=== PATIENT | female | born 1990 | race Caucasian/White ===

== ENCOUNTER 2021-02-24 12:59 | Day surgery (SDC) | payer MEDICAID, OTHER ==
[~2021-02-24] VITALS: Ht 162.6 cm; Wt 92.5 kg
[2021-02-24 14:10] LABS: HCG,QUAL RESULT NEGATIVE (NEGATIVE)
[2021-02-24] MEDS ORDERED: CEFAZOLIN 2 GM IVPB PREMIX 50 ML IV ONE (14:27)
[2021-02-24] MEDS ORDERED: ALBMDI INH (15:20)
[2021-02-24] MEDS ORDERED: ACET-2634 PO (15:21)
[2021-02-24] MEDS ORDERED: CEFAZOLIN SOD 2 GM in D5W 50 ML IV ONE (15:30)
[2021-02-24] MEDS ORDERED: MIDAZOLAM HCL 5 MG/5 ML VIAL IVP ONE (17:25)
[2021-02-24] MEDS ORDERED: PHENYLEPHRINE HCL 10 MG/ML VIAL (NEOSYNEPHRINE) IV ONE (17:25)
[2021-02-24] MEDS ORDERED: NS IRRIG SOLN 1000 ML IR ONE (17:25)
[2021-02-24] MEDS ORDERED: ONDANSETRON HCL 4 MG/2 ML VIAL IVP ONE (17:25)
[2021-02-24] MEDS ORDERED: fentaNYL CITRATE 250 MCG/5 ML AMP IV ONE (17:25)
[2021-02-24] MEDS ORDERED: SEVOFLURANE 15 MIN GAS INH ONE (17:25)
[2021-02-24] MEDS ORDERED: LR 1,000 ML IV.SOLN IV ONE (17:25)
[2021-02-24] MEDS ORDERED: GLYCOPYRROLATE 0.2 MG/ML VIAL IJ ONE (17:25)
[2021-02-24] MEDS ORDERED: ROCURONIUM BROMIDE 10 MG/ML (ZEMURON) IV ONE (17:25)
[2021-02-24] MEDS ORDERED: PROPOFOL 200MG/ 20ML VIAL (DIPRIVAN) IV ONE (17:25)
[2021-02-24] MEDS ORDERED: NS 1000 ML IV.SOLN IV ONE (17:25)
[2021-02-24] MEDS ORDERED: BUPIVACAINE /EPINEPHRINE/PF 0.5% 30 ML VIAL INJ ONE (17:25)
[2021-02-24] MEDS ORDERED: METOCLOPRAMIDE HCL 10 MG/2 ML VIAL IVP PRN (18:30)
[2021-02-24] MEDS ORDERED: fentaNYL CITRATE/PF 100 MCG/2 ML AMP IVP PRN ×2 (18:30)
[2021-02-24] MEDS ORDERED: ONDANSETRON HCL 4 MG/2 ML VIAL IVP PRN (18:30)
[2021-02-24] MEDS ORDERED: KETOROLAC TROMETHAMINE 30 MG VIAL ONE (19:09)
[2021-02-24] MEDS ORDERED: KETOROLAC TROMETHAMINE 30 MG VIAL IM PRN (19:15)
[2021-02-24] MEDS ORDERED: KETOROLAC TROMETHAMINE 30 MG VIAL IVP PRN (19:15)
[2021-02-24] MEDS ORDERED: HYDROcodone/ACETAMIN 5-325 MG TAB (NORCO/ VICODIN) PO PRN (19:15)
[2021-02-24] MEDS ORDERED: MIDAZOLAM HCL 2 MG/2 ML VIAL (VERSED) ONE (19:18)
[2021-02-24] MEDS: LR 1,000 ML IV SCH (19:24)
[2021-02-24] MEDS ORDERED: MIDAZOLAM HCL 2 MG/2 ML VIAL (VERSED) IVP ONE (19:30)
[2021-02-24] MEDS: fentaNYL CITRATE/PF 100 MCG/2 ML AMP ONE ×2 (19:32→19:37)
--- NOTE | 2021-02-24 20:15 | NUR ---
PT ADMITTED MED SURG PT FOR 23 HOURS. PT AOX4 ABLE TO MAKE NEEDS KNOWN. RR EVEN AND UNLABORED ON RA. PT HAS 4 SMALL DRESSING ON ABD. DRESSINGS INTACT. PT AMBULATORY WITH ASSIST. PT FAMILY AT BEDSIDE. CALL LIGHT WITHIN REACH. BED RAILS UPX2. WILL CONTINUE TO MONITOR.
[2021-02-24 21:11] VITALS: BP_SYST 130
[2021-02-24] MEDS: ceFAZolin SODIUM 2 GM in D5W 100 ML IV SCH (22:00)
[2021-02-24] MEDS: HYDROmorphone 1 MG/ML INJ. CARTRIDGE IVP PRN (22:27)
[2021-02-25] MEDS ORDERED: CEFAZOLIN 2 GM IVPB PREMIX 50 ML IV ONE ×2 (00:01→06:15)
[2021-02-25 01:11] VITALS: BP_SYST 114
[2021-02-25 02:44] VITALS: BP_SYST 133
[2021-02-25] MEDS: HYDROmorphone 1 MG/ML INJ. CARTRIDGE IVP PRN ×2 (02:51→07:57)
[2021-02-25] MEDS: LR 1,000 ML IV SCH (06:21)
[2021-02-25] MEDS: ceFAZolin SODIUM 2 GM in D5W 100 ML IV SCH (06:22)
[2021-02-25 07:55] VITALS: BP_SYST 125
--- NOTE | 2021-02-25 07:55 | NUR ---
Opening note patient resting in bed, a/ox4, complaining of abd pain at this time, educated the patient on pain management, plan of care and call light system, she verbalized understanding, IV line is patent and infusing well, x4 abdominal dressings noted to anterior abdomen, continuing to monitor, bed in lowest position, two side rails up, call light within reach, fall and aspiration precautions in place.
--- NOTE | 2021-02-25 10:26 | NUR ---
Pain offered patient pain medication based on her pain level and she only wanted IV medication at this time, continuing to educated patient on pain management.
[2021-02-25] MEDS ORDERED: HYDR-3919 PO (12:55)
== END 2021-02-25 14:10 | disposition home or self-care (01) ==
LOC: SDS 12:59 → SMU 13:03 → SDS 02-25 14:10
PROVIDERS: ATTEND Surgery
DX: K80.10 Calculus of gallbladder with chronic cholecystitis without obstruction (principal); Z79.899 Other long term (current) drug therapy; Z20.822 Contact with and (suspected) exposure to COVID-19
CPT/HCPCS: 36415; 47562; 71046; 84703; 87081; 87426; 88304; C1727; J0690 ×3; J1170 ×2; J1885 ×2; J2250; J2370; J2405; J2704; J3010 ×2; J3465; J3490 ×2; J7030; J7060; J7120

== ENCOUNTER 2021-11-08 10:01 | Emergency (ER) | payer MEDICAID, OTHER ==
[~2021-11-08] VITALS: Ht 162.6 cm; Wt 63.5 kg
[~2021-11-08 10:01] MED LIST: ACET-2634 PO; ALBMDI INH; HYDR-3919 PO
--- NOTE | 2021-11-08 10:05 | NUR ---
Placed in room tent . Placed on flotation operator, blood pressure machine and pulse oximeter. To gown for exam. Side rails up.
--- NOTE | 2021-11-08 10:10 | NUR ---
Pt brought by self, A&Ox4, pt presents to ER with cough/ congestion , requesting an X-ray, skin pink and warm, cap refill <3, VSS
[2021-11-08 10:12] VITALS: BP_SYST 137
--- NOTE | 2021-11-08 10:23 | NUR ---
Reggie davison in [facility] - 11/08/21 at [email or web address] Portillo evaluating patient at bedside
== END 2021-11-08 10:20 | disposition left against medical advice (07) ==
LOC: SED 10:01
DX: R05.9 Cough, unspecified (principal); R09.81 Nasal congestion; Z53.21 Procedure and treatment not carried out due to patient leaving prior to being seen by health care provider

== ENCOUNTER 2021-11-12 10:23 | Emergency (ER) | payer MEDICAID ==
[~2021-11-12] VITALS: Ht 162.6 cm; Wt 88.5 kg
[2021-11-12 10:23] VITALS: BP_SYST 144
[2021-11-12 11:15] LABS: BILIRUBIN,URINE NEGATIVE (NEGATIVE); BLOOD, URINE NEGATIVE (NEGATIVE); COLOR,URINE YELLOW (YELLOW); GLUCOSE,URINE NEGATIVE (NEGATIVE); KETONES,URINE NEGATIVE (NEGATIVE); LEUKOCYTE ESTERASE ,URINE 1+ (NEGATIVE); NITRITE, URINE NEGATIVE (NEGATIVE); PROTEIN URINE TRACE (NEGATIVE); UROBILINOGEN,URINE 0.2 (0.2-1.0)
[2021-11-12 11:19] LABS: CLARITY/URINE HAZY (CLEAR)
[2021-11-12 11:53] LABS: RBC,URINE 0-3 /HPF (0-3)
[2021-11-12 11:54] LABS: BACTERIA,URINE MODERATE /HPF (None Seen)
[2021-11-12] MEDS ORDERED: NITR-85 PO (12:15)
== END 2021-11-12 12:19 | disposition left against medical advice (07) ==
LOC: SED 10:23
DX: U07.1 COVID-19 (principal); R10.31 Right lower quadrant pain; R30.0 Dysuria; J45.909 Unspecified asthma, uncomplicated; Z88.6 Allergy status to analgesic agent; Z79.899 Other long term (current) drug therapy
CPT/HCPCS: 76376; 81000; 81025; 87086; 99284